=== PATIENT | female | born 1965 | race Caucasian/White ===

== ENCOUNTER 2017-02-28 20:01 | Emergency (ER) | payer MEDICAID, OTHER ==
[2017-02-28 20:16] VITALS: BP 152/79
--- NOTE | 2017-02-28 20:42 | UC ---
Jean Claude Benavides Natalie, scribed for Josue Lai MD on 02/28/17 at 2036 . Abdominal Pain Female HPI - HPI Summary HPI Summary: The pt is a 51 y/o F presenting to c/o LLQ abd pain starting two days ago. The pain is described as shooting. The pain is rated 4/10. The pain is aggravated by lying down and coughing. Pt additionally c/o coughing (two weeks) , right ear pain and burning with urination. Pt denies fever and back pain. She has Hx of emphysema. She has SHx of smoking. - History of Current Complaint Chief Complaint: UCGeneralIllness Stated Complaint: COUGH,VOMITING,ABD PAIN Time Seen by Provider: 02/28/17 20:24 Hx Obtained From: Patient Onset/Duration: Lasting Days - started two days ago, Still Present Severity Initially: Moderate Severity Currently: Moderate Pain Intensity: 4 Pain Scale Used: 0-10 Numeric Location: Discrete At: LLQ Radiates: No Character: Other - "shooting" Aggravating Factor(s): Other: - lying down, coughing Alleviating Factor(s): Nothing Associated Signs and Symptoms: Positive: Cough, Urinary Symptoms - burning with urination, Other: - right ear pain Allergies/Adverse Reactions: Allergies Allergy/AdvReac Type Severity Reaction Status Date / Time Clarithromycin [From Biaxin] Allergy Rash Verified 02/28/17 20:16 Codeine Allergy Swelling Verified 02/28/17 20:16 Home Medications: Home Medications Aspirin [Will Aspirin Regimen] 325 mg PO 02/28/17 [History] Yjvhzsk-Vuctfolekdkfk-Nbhfbjsa [Migraine Formula 250-250-65 mg] 1 tab PO [History] Insulin Lispro Protamine & Lis [Humalog Mix 75/25 Kwikpen (75-25) 100 Unit/ml] 02/28/17 [History] Lisinopril [Lisinopril 30 MG-] 30 mg PO DAILY 02/28/17 [History Confirmed ] Nateglinide(NF) [Starlix(NF)] 60 mg PO TID WITH MEALS 02/28/17 [History Confirmed 02/28/17] PMH/Surg Hx/FS Hx/Imm Hx - Surgical History Surgical History: Yes Surgery Procedure, Year, and Place: Hysterectomy. gall bladder 2014 - Family History Known Family History: Positive: None Family History: R & N/C - Social History Alcohol Use: None Substance Use Type: None Smoking Status (MU): Current Every Day Smoker Review of Systems ENT: Ear Ache Respiratory: Cough Gastrointestinal: Abdominal Pain Genitourinary: Dysuria All Other Systems Reviewed And Are Negative: Yes Physical Exam Triage Information Reviewed: Yes Appearance: Obese Vital Signs: Initial Vital Signs Temp 97.7 F 02/28/17 20:09 Pulse 97 02/28/17 20:09 Resp 22 02/28/17 20:09 BP 152/79 02/28/17 20:09 Pulse Ox 100 02/28/17 20:09 Vital Signs Reviewed: Yes Eyes: Positive: Conjunctiva Clear ENT: Positive: Pharyngeal erythema, TM red - right. Negative: Hoarse voice Neck: Positive: Supple Respiratory: Positive: Lungs clear, Normal breath sounds, No respiratory distress Cardiovascular: Positive: RRR, No Murmur Abdomen Description: Positive: Other: - tender in the Left Lower quadrant Musculoskeletal: Positive: ROM Intact Neurological: Positive: Alert Psychological: Positive: Normal Response To Family Skin Exam: Normal Abd Pain Female Course/Dx - Course Course Of Treatment: 51 yr old female who signed out AMA refusing to go for work up of her abdominal pain to the ER. Risks understood. - Differential Dx/Diagnosis Provider Diagnoses: abdominal pain. uri. hypertension Discharge - Discharge Plan Condition: Good Disposition: AGAINST MEDICAL ADVICE Referrals: Rachel Duenas NP [Primary Care Provider] - The documentation as recorded by the Jean Claude carey Natalie accurately reflects the service I personally performed and the decisions made by , Josue Lai MD.
== END 2017-02-28 20:37 | disposition left against medical advice (07) ==
LOC: UCEAST 20:01
DX: R10.9 Unspecified abdominal pain (principal); J06.9 Acute upper respiratory infection, unspecified; I10 Essential (primary) hypertension; F17.200 Nicotine dependence, unspecified, uncomplicated; Z88.1 Allergy status to other antibiotic agents; Z88.5 Allergy status to narcotic agent; Z79.82 Long term (current) use of aspirin; E11.9 Type 2 diabetes mellitus without complications; Z79.4 Long term (current) use of insulin
CPT/HCPCS: 99212; G0463

== ENCOUNTER 2017-03-29 23:24 | Inpatient (IN) | payer OTHER ==
[2017-03-30] MEDS ORDERED: Ondansetron INJ* 2 MG/ML VIAL IV ONE (01:20)
[2017-03-30] MEDS ORDERED: Morphine INJ* 4 MG/ML 1 ML CARPUJECT IV ONE (01:20)
[2017-03-30] MEDS: NS 0.9% 1000 ML* 2,000 ML IV ONE (01:33)
[2017-03-30 01:50] LABS: ABS Basophils 0.1 10^3/ul (0-0.2); ABS Eosinophils 0.4 10^3/ul (0-0.6); ABS Lymphocytes 2.7 10^3/ul (1.0-4.8); ABS Monocytes 0.6 10^3/ul (0-0.8); ABS Nucleated RBC 0 10^3/ul; Hematocrit 36 % (35-47); Hemoglobin 12.5 g/dl (12.0-16.0); Lymphocyte % 30.8 % (25-47); Mean Corpuscular HGB Conc 34 g/dl (31-36); Mean Corpuscular Hemoglobin 34 pg (27-31); Mean Corpuscular Volume 99 fL (80-97); Mean Platelet Volume 9 um3 (7.4-10.4); Nucleated Red Blood Cells % 0; Platelet Count 194 10^3/ul (150-450); Red Blood Count 3.69 10^6/ul (4.0-5.4); Red Cell Distribution Width 14 % (10.5-15); White Blood Count 8.8 10^3/ul (3.5-10.8)
[2017-03-30 01:54] LABS: INR 1.1 (0.77-1.02)
[2017-03-30 02:00] LABS: EGFR Non-African American 53.4 (>60)
[2017-03-30] MEDS ORDERED: Iodixanol* (CONTRAST) 320 MG/ML 100 ML SDV IV ONE (03:39)
[2017-03-30] MEDS ORDERED: Magnesium Sulfate 2 GM IV* 2 GM/50 ML BAG IVPB ONE (03:58)
--- NOTE | 2017-03-30 07:12 | ED ---
Cesar Benavides Thomas, scribed for Hollis Molina MD on 03/30/17 at 0105 . HPI Chest Pain - HPI Summary HPI Summary: The patient is a 51 year old female presenting to the emergency department complaining of chest pain and lower abdominal pain that has been present for three days. The pain is rated 8/10 and is described as pressure. The patient additionally complains of chills, diarrhea (chronic), bloody-appearing urine, and a productive cough. The patient denies bloody stools. Past medical history includes HTN, HLD, and DM. Past surgical history includes hysterectomy and cholecystectomy. - History of Current Complaint Chief Complaint: EDChestPainROMI Time Seen by Provider: 03/30/17 00:57 Hx Obtained From: Patient Onset/Duration: Started Days Ago - 3, Still Present Timing: Constant Current Severity: Moderate Pain Intensity: 8 Pain Scale Used: 0-10 Numeric Chest Pain Radiates: Yes Chest Pain Radiates To:: Back Character: Pressure/Squeezing Alleviating Factor(s): Nothing Associated Signs and Symptoms: Positive: Other: - CP, lower abd pain, chills, diarrhea, bloody-appearning urine, cough; NEGATIVE: bloody stools Related History: Obesity - Allergy/Home Medications Allergies/Adverse Reactions: Allergies Allergy/AdvReac Type Severity Reaction Status Date / Time MS Clarithromycin Allergy Rash Verified 03/29/17 23:36 [From Biaxin] MS Codeine [Codeine] Allergy Swelling Verified 03/29/17 23:36 PMH/Surg Hx/FS Hx/Imm Hx Endocrine/Hematology History: Reports: Hx Diabetes Denies: Hx Thyroid Disease Cardiovascular History: Reports: Hx Hypertension Respiratory History: Reports: Hx Chronic Obstructive Pulmonary Disease (COPD) Denies: Hx Asthma GI History: Denies: Hx Ulcer - Surgical History Surgery Procedure, Year, and Place: Hysterectomy. gall bladder 2015 Infectious Disease History: No Infectious Disease History: Denies: Hx Clostridium Difficile, Hx Hepatitis, Hx Human Immunodeficiency Virus (HIV), Hx of Known/Suspected MRSA, Hx Shingles, Hx Tuberculosis, Hx Known/ Suspected VRE, Hx Known/Suspected VRSA, History Other Infectious Disease, Traveled Outside the [place] in Last 30 Days - Family History Known Family History: Positive: Diabetes - Social History Alcohol Use: None Hx Substance Use: No Substance Use Type: Reports: None Hx Tobacco Use: Yes Smoking Status (MU): Current Every Day Smoker Review of Systems Positive: Chills. Negative: Fever Positive: Chest Pain Positive: Cough Positive: Diarrhea - chronic. Negative: Other - bloody stools Positive: other - bloody-appearing urine All Other Systems Reviewed And Are Negative: Yes Physical Exam - Summary Physical Exam Summary: General: well-appearing, mild pain distress Skin: warm, color reflects adequate perfusion, dry Head: normal Eyes: EOMI, SHAYNE ENT: normal Neck: supple, nontender Respiratory: CTA, breath sounds present Cardiovascular: RRR Chest: Tender to palpation at the sternum. Abdomen: Soft. There is mild tenderness to palpation at the lower abdomen. Bowel: present Musculoskeletal: normal, strength/ROM intact Neurological: normal, sensory/motor intact, A&O x3 Psychological: affect/mood appropriate Triage Information Reviewed: Yes Vital Signs On Initial Exam: Initial Vitals Temp Pulse Resp BP Pulse Ox 97.5 F 94 18 160/81 100 03/29/17 23:34 03/29/17 23:34 03/29/17 23:34 03/29/17 23:34 03/29/17 23:34 Vital Signs Reviewed: Yes Diagnostics - Vital Signs Vital Signs Temp Pulse Resp BP Pulse Ox 03/29/17 23:34 97.5 F 94 18 160/81 100 - Laboratory Lab Results: Lab Results 03/30/17 03/30/17 03/30/17 Range/Units 01:20 01:20 01:20 WBC (3.5-10.8) 10^3/ul RBC (4.0-5.4) 10^6/ul Hgb (12.0-16.0) g/dl Hct (35-47) % MCV (80-97) fL MCH (27-31) pg MCHC (31-36) g/dl RDW (10.5-15) % Plt Count (150-450) 10^3/ul MPV (7.4-10.4) um3 Neut % (Auto) (38-83) % Lymph % (Auto) (25-47) % [place] % (Auto) (1-9) % Eos % (Auto) (0-6) % Baso % (Auto) (0-2) % Absolute Neuts (auto) (1.5-7.7) 10^3/ul Absolute Lymphs (auto) (1.0-4.8) 10^3/ul Absolute Monos (auto) (0-0.8) 10^3/ul Absolute Eos (auto) (0-0.6) 10^3/ul Absolute Basos (auto) (0-0.2) 10^3/ul Absolute Nucleated RBC 10^3/ul Nucleated RBC % INR (Anticoag Therapy) 1.10 H (0.77-1.02) APTT 28.9 (26.0-36.3) seconds Sodium 134 (133-145) mmol/L Potassium 4.1 (3.5-5.0) mmol/L Chloride 101 (101-111) mmol/L Carbon Dioxide 26 (22-32) mmol/L Anion Gap 7 (2-11) mmol/L BUN 17 (6-24) mg/dL Creatinine 1.09 H (0.51-0.95) mg/dL Est GFR ( Amer) 68.6 (>60) Est GFR (Non-Af Amer) 53.4 (>60) BUN/Creatinine Ratio 15.6 (8-20) Glucose 175 H (70-100) mg/dL Lactic Acid (0.5-2.0) mmol/L Calcium 9.4 (8.6-10.3) mg/dL Magnesium 1.6 L (1.9-2.7) mg/dL Total Bilirubin 0.30 (0.2-1.0) mg/dL AST 14 (13-39) U/L ALT 9 (7-52) U/L Alkaline Phosphatase 76 (34-104) U/L Troponin I 0.01 (<0.04) ng/mL C-Reactive Protein 4.60 (< 5.00) mg/L B-Natriuretic Peptide 47 ( - 100) pg/mL Total Protein 7.0 (6.4-8.9) g/dL Albumin 3.1 L (3.2-5.2) g/dL Globulin 3.9 (2-4) g/dL Albumin/Globulin Ratio 0.8 L (1-3) Lipase 471 H (11.0-82.0) U/L TSH 2.27 (0.34-5.60) mcIU/mL 03/30/17 03/30/17 03/30/17 Range/Units 01:20 01:20 04:20 WBC 8.8 (3.5-10.8) 10^3/ul RBC 3.69 L (4.0-5.4) 10^6/ul Hgb 12.5 (12.0-16.0) g/dl Hct 36 (35-47) % MCV 99 H (80-97) fL MCH 34 H (27-31) pg MCHC 34 (31-36) g/dl RDW 14 (10.5-15) % Plt Count 194 (150-450) 10^3/ul MPV 9 (7.4-10.4) um3 Neut % (Auto) 56.2 (38-83) % Lymph % (Auto) 30.8 (25-47) % [place] % (Auto) 7.3 (1-9) % Eos % (Auto) 5.0 (0-6) % Baso % (Auto) 0.7 (0-2) % Absolute Neuts (auto) 5.0 (1.5-7.7) 10^3/ul Absolute Lymphs (auto) 2.7 (1.0-4.8) 10^3/ul Absolute Monos (auto) 0.6 (0-0.8) 10^3/ul Absolute Eos (auto) 0.4 (0-0.6) 10^3/ul Absolute Basos (auto) 0.1 (0-0.2) 10^3/ul Absolute Nucleated RBC 0 10^3/ul Nucleated RBC % 0 INR (Anticoag Therapy) (0.77-1.02) APTT (26.0-36.3) seconds Sodium (133-145) mmol/L Potassium (3.5-5.0) mmol/L Chloride (101-111) mmol/L Carbon Dioxide (22-32) mmol/L Anion Gap (2-11) mmol/L BUN (6-24) mg/dL Creatinine (0.51-0.95) mg/dL Est GFR ( Amer) (>60) Est GFR (Non-Af Amer) (>60) BUN/Creatinine Ratio (8-20) Glucose (70-100) mg/dL Lactic Acid 1.0 (0.5-2.0) mmol/L Calcium (8.6-10.3) mg/dL Magnesium (1.9-2.7) mg/dL Total Bilirubin (0.2-1.0) mg/dL AST (13-39) U/L ALT (7-52) U/L Alkaline Phosphatase (34-104) U/L Troponin I 0.02 (<0.04) ng/mL C-Reactive Protein (< 5.00) mg/L B-Natriuretic Peptide ( - 100) pg/mL Total Protein (6.4-8.9) g/dL Albumin (3.2-5.2) g/dL Globulin (2-4) g/dL Albumin/Globulin Ratio (1-3) Lipase (11.0-82.0) U/L TSH (0.34-5.60) mcIU/mL Result Diagrams: 03/30/17 01:20 03/30/17 01:20 Lab Statement: Any lab studies that have been ordered have been reviewed, and results considered in the medical decision making process. - CT CTA Abd/Pel CT Interpretation: No Acute Changes - Contrast mixing artifact more likely than Pes left main artery and branches to left upper lobe. No aortic dissection or aneurysm. Prominence interstitial markings and faint ground glass densities bilateral lungs, nonspecific. No focal lung consolidation or pleural effusions. Coronary artery disease. Fat haziness surrounding pancreatic tail, correlate clinically for acute pancreatitis. No bowel obstruction, colitis or free air. Normal appendix. Cortical scarring bilateral kidneys with small calceal diverticulum on right and calcifications/nonobstructing stones on the left. Cirrhotic liver contour. Hepatomegaly. Cholecystectomy. Hysterectomy. Negligible ascites lower pelvis. Bilateral L5 spondylosis. Dr. Molina has reviewed this report. CT Interpretation Completed By: Radiologist - EKG 23:29 Cardiac Rate: NL EKG Rhythm: Sinus Rhythm - at [address] Segment: Normal Ectopy: None Chest Pain Course/Dx - Course Course Of Treatment: Medications reviewed. BP noted and patient urged primary care follow-up. Allergies noted. ADMIT HOSPITALIST. CRITICAL CARE TIME LESS THAN 30 MINUTES - Diagnoses Provider Diagnoses: Uncontrolled hypertension, Pancreatitis Discharge - Discharge Plan Condition: Stable Disposition: ADMITTED TO [facility] documentation as recorded by the Cesar carey Thomas accurately reflects the service I personally performed and the decisions made by , Hollis Molina MD.
[2017-03-30] MEDS ORDERED: Dextrose 50% Syringe 50 ML* 25 GM/50 ML SYRINGE IV PUSH PRN (07:25)
--- NOTE | 2017-03-30 08:22 | RAD ---
INDICATION: Chest and abdominal pain COMPARISON: Chest x-ray April 11, 2015 TECHNIQUE: Axial source images were obtained from the thoracic inlet to the symphysis pubis following administration of oral and intravenous contrast. 100 mL Visipaque [address] angiographic technique was utilized. Coronal and sagittal reconstructed images were acquired. CHEST FINDINGS: Neck/thyroid: The visualized neck to include the thyroid appear normal. Chest wall: There are no acute abnormalities of the bony thorax or chest wall. There is no supraclavicular, infraclavicular, or axillary lymphadenopathy. Lungs : There are no pulmonary parenchymal masses or infiltrates. The pulmonary interstitium appears normal. There are no endobronchial lesions. Cardiomediastinal structures: The heart is normal in size. There is no pericardial effusion. There is no evidence of aortic aneurysm or dissection. The pulmonary vessels appear normal. There is no CT evidence of acute pulmonary emboli. There is no mediastinal or hilar adenopathy. The esophagus appears normal. Pleura : There are no pleural-based masses or effusions. ABDOMINAL/PELVIC FINDINGS: Liver: The liver is normal in size. There is a lobular contour suggestive of cirrhosis There are no masses. There is no ductal dilatation. Gallbladder: Cholecystectomy. Spleen: The spleen is normal in size. There are no masses. Pancreas: The tail the pancreas appears mildly prominent and there is peripancreatic stranding suggestive of pancreatitis. Suggest correlation with serum lipase. Adrenal glands: There is no evidence of adrenal mass. Kidneys: There is scarring of each kidney. This is most significant on the left. There is also evidence of nodular left-sided nephrolithiasis. There is right-sided calyceal diverticulum. Adenopathy: There is no evidence of adenopathy by size criteria. Fluid collections: There are no significant free or localized fluid collections. Vessels:The aorta and IVC appear normal GI tract: There are no acute CT bowel findings. There is no obstruction. The stomach and small bowel appear normal. The lower GI tract is normal. The cecum, ileocecal valve, and terminal ileum appear normal. The appendix is visualized and appear normal. Pelvic organs: There is hysterectomy. There is no adnexal mass Bladder: There are no bladder masses. Abdominal and pelvic soft tissues: The extraperitoneal abdominal and pelvic soft tissues appear normal.. Osseous structures: There are no acute osseous findings. There is chronic, bilateral, L5 spondylolysis. IMPRESSION: 1. No CT evidence of acute pulmonary embolic disease. 2. Cirrhotic liver morphology. 3. Possible pancreatitis. 4. Renal scarring with nonobstructive left-sided nephrolithiasis. 5. Chronic L5 spondylolysis. 6. Cholecystectomy. Hysterectomy.
[2017-03-30] MEDS: Insulin LISPRO* 1 UNITS UNIT SUBCUT SCH ×4 (08:24→22:17)
[2017-03-30] MEDS: D5W 1/2 NS KCl 20 Meq 1000 ML* 1,000 ML IV SCH ×2 (08:33→16:53)
[2017-03-30] MEDS ORDERED: Ondansetron INJ* 2 MG/ML VIAL IV PRN (12:06)
[2017-03-30] MEDS ORDERED: HYDROmorphone INJ* 1 MG/ML CARPUJECT SYRINGE IV SLOW PU PRN (12:07)
[2017-03-30] MEDS ORDERED: Lisinopril TAB* 10 MG PO SCH (13:00)
[2017-03-30] MEDS: PTO: Pantoprazole TAB (NF) 20 MG TAB PO SCH (13:13)
[2017-03-30] MEDS: amLODIPine TAB* 5 MG PO SCH (16:53)
[2017-03-30] MEDS: Benzonatate CAP* 100 MG PO PRN (16:53)
--- NOTE | 2017-03-30 20:15 | HP ---
ADMISSION HISTORY AND PHYSICAL: DATE OF ADMISSION: 03/30/17 PRIMARY CARE PROVIDER: Rachel Duenas NP ATTENDING FOR THIS CASE: Caio De La Cruz MD * (DICTATED BY GREGORIA PAINTING NP) CHIEF COMPLAINT: Right upper quadrant and abdominal pain. HISTORY OF PRESENT ILLNESS: This is a 51-year-old female patient who appears older than her stated age that came to the emergency department complaining of chest pain, abdominal pain, and right upper quadrant pain for three days. The patient states the pain was 8/10 described as pressure. The patient states that she also had some chills and some diarrhea, perhaps some darkness in the color of her urine and productive cough. The patient's past medical history is significant for hypertension, pancreatitis, hyperlipidemia, diabetes mellitus, and alcohol abuse in the past. The patient had a CAT scan of the chest, abdomen , and pelvis which shows a flare of her pancreatitis, also her lipase was elevated. She has been referred for inpatient admission for [id number] pancreatitis and abdominal pain. PAST MEDICAL HISTORY: As stated above. PAST SURGICAL HISTORY: 1. Hysterectomy. 2. Cholecystectomy. MEDICATIONS AT HOME: Include; 1. Low-dose baby aspirin 81 mg daily. 2. 70/30 insulin b.i.d. 3. Lisinopril 30 mg daily. 4. Pantoprazole 20 mg two times a day. 5. Starlix 60 mg three times a day. ALLERGIES: 1. MACROLIDE antibiotics. 2. CLARITHROMYCIN. 3. CODEINE. 4. 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 Reports no substance abuse. She is a daily tobacco user since age 11. She smokes about a half a pack a day now; however, up until a couple of years ago she was smoking over a pack a day. Also of significant note, the patient reported that she just had a breast biopsy completed a week ago and has been escalated to breast MRI for some abdominal findings on her breast biopsy. REVIEW OF SYSTEMS: The patient is complaining of some chills, but no fever. Right upper quadrant pain, transient nausea, no vomiting, lower abdominal pain as well diffuse in nature as she described it. No nausea or vomiting. No diarrhea. No arthralgias or myalgias and no further constitutional complaints. PHYSICAL EXAMINATION GENERAL: The patient is alert. Again, appears older than her stated age and some mild distress. VITAL SIGNS: Currently, blood pressure 160/85, temperature 97.8, heart rate 86 , O2 saturation is 97% on room air, respiratory rate 20. HEENT: The patient is atraumatic, normocephalic. She has PERRLA. Nonicteric sclerae. She does have certain amount of edema around the upper and lower lids of the eyes. Not sure if this is her baseline or not. NECK: Supple. Nontender. No JVD noted. No carotid bruit auscultated. No thyromegaly or nodules noted. LUNGS: Greatly diminished with some scattered rhonchi and mild expiratory wheeze. CARDIOVASCULAR: S1, S2 present. Rate and rhythm are regular. No murmurs, gallops, or rubs are appreciated. ABDOMEN: Soft. Moderately to severely tender in the right upper quadrant. She does have some point tenderness, but no guarding. She has positive bowel sounds in all four quadrants. No hepatosplenomegaly appreciated. : Deferred. MUSCULOSKELETAL: There is no clubbing. No edema. No cyanosis noted. She has +2 distal pulses palpable. She has gross motor and sensation intact and she is ambulatory. NEUROLOGIC: She is grossly intact with no focal deficits. PSYCHIATRIC: She is cooperative and very appropriate. LABORATORY DATA: WBC is 8.8, RBC is 3.69, hemoglobin 12.5, hematocrit 36, MCV 99, MCH 34, and platelets 194. Sodium 134, potassium 4.1, chloride 101, CO2 26 , BUN 17, creatinine 1.09, GFR 53.4, glucose 175, lactic acid 1.0, magnesium 1.6 , bilirubin 0.3, AST 14, ALT 9, alkaline phos 76. Troponins are 0.01, 0.02, and 0.01. CRP is 4.6, protein 7.0, albumin 3.1, globulin 3.9. Triglycerides 129, cholesterol 201, LDL 137, HDL 38.1, lipase 487, and TSH 2.27. IMPRESSION: This is a 51-year-old female patient with what appears to now be an esxyq-ni-zqlexil pancreatitis being admitted for fluid management, pain control, and likely some further management of her high blood pressure and some electrolyte disturbances. DIAGNOSES: 1. Evgzq-vo-mrpruxj pancreatitis. She has already been given 2 L of fluid. CAT scan of the chest, abdomen, and pelvis shows no pulmonary embolus given her chest pain. Troponins were negative, I did not feel that this chest pain was actually cardiac chest pain, however, radiating pain secondary to pancreatitis. Again, she has been given fluids. She was placed on clear diet, which she seems to be tolerating. We will give her 1 mg of Dilaudid every 6 hours as needed for pain. Continue IV fluids. Continue hydration. At this point, monitor her lipase and continue conservative management. 2. Acute kidney injury. Again, she has received fluids. She will continue to receive more. I do not if she has underlying kidney disease given her diabetes , this maybe an issue. We will monitor her renal function, creatinine, and BUN and again continue with fluids. 3. For her hyperlipidemia, she is not on statin. This will be recommended. We will start her on one and have continue it at discharge. 4. For her diabetes mellitus, we will put her on lispro sliding scale. She is only on clear liquid, so long acting insulin would inappropriate at this time. Sugars have been relatively stable in the 140s to 170 range. 5. For her hypertension, I am going to change her lisinopril given her kidney function today and change her to Norvasc and monitor for response. 6. For her hypomagnesemia, she has already received 2 g of mag in the ER. We will recheck her mag level. 7. For her gastroesophageal reflux disease, continue her PPI which is her pantoprazole 20 mg twice daily. PLAN: I think at this point continue conservative management for the pancreatitis would be warranted. If she should have further pain or increase in leukocytosis or fevers, we may escalate to an MRCP. However, the patient does not seem to be heading in that direction. We will monitor her status closely within the next 24 hours. The patient states she does not want her children to know about her illness right now nor that she want them to know about the results of her breast biopsy. This has been discussed with her at length and it is also in the computer and she had stated to the staff that she wished to be a DNR. As the patient is not feeling well today given her young age, I recommend having another conversation with her about her DNR status considering all that is going on right now. I think that is another conversation that should be had with her before this hospitalization is over. This plan has been discussed with Dr. Caio De La Cruz who is in agreement with the plan. The rest of her course will be determined by further diagnostics, laboratories and any other input from other providers as warranted during this admission. TIME SPENT: I personally spent an excessive 60 minutes on this admission face- to- face with the patient and interacting with the staff involved in her care. GREGORIA PAINTING, DAMIÁN [id number]/CPS #: [id number] [facility]esh
[2017-03-31] MEDS: Omeprazole CAP* 20 MG PO SCH ×2 (00:13→20:42)
[2017-03-31] MEDS: PTO: Pantoprazole TAB (NF) 20 MG TAB PO SCH (00:23)
[2017-03-31] MEDS: D5W 1/2 NS KCl 20 Meq 1000 ML* 1,000 ML IV SCH (02:17)
[2017-03-31 08:17] LABS: ABS Basophils 0 10^3/ul (0-0.2); ABS Eosinophils 0.4 10^3/ul (0-0.6); ABS Lymphocytes 2.3 10^3/ul (1.0-4.8); ABS Monocytes 0.5 10^3/ul (0-0.8); ABS Neutrophils 3.9 10^3/ul (1.5-7.7); ABS Nucleated RBC 0 10^3/ul; Eosinophil % 5.4 % (0-6); Hematocrit 36 % (35-47); Hemoglobin 12.5 g/dl (12.0-16.0); Lymphocyte % 32.2 % (25-47); Mean Corpuscular HGB Conc 34 g/dl (31-36); Mean Corpuscular Hemoglobin 34 pg (27-31); Mean Corpuscular Volume 100 fL (80-97); Mean Platelet Volume 9 um3 (7.4-10.4); Nucleated Red Blood Cells % 0; Platelet Count 181 10^3/ul (150-450); Red Blood Count 3.66 10^6/ul (4.0-5.4); Red Cell Distribution Width 13 % (10.5-15); White Blood Count 7.2 10^3/ul (3.5-10.8)
[2017-03-31 08:22] LABS: EGFR Non-African American 59.6 (>60)
[2017-03-31] MEDS: amLODIPine TAB* 5 MG PO SCH (09:38)
[2017-03-31] MEDS: Aspirin EC Low Dose* 81 MG TAB.EC PO SCH (09:38)
[2017-03-31] MEDS: Insulin LISPRO* 1 UNITS UNIT SUBCUT SCH ×4 (09:39→20:51)
[2017-03-31] MEDS ORDERED: guaiFENesin LIQ* 100 MG/5 ML UDC PO PRN (15:06)
--- NOTE | 2017-03-31 16:08 | PN ---
Subjective Date of Service: 03/31/17 Interval History: Still having abdominal pain, but is manageable with a heating pad. She ate lunch with minimal nausea. No fevers, shortness of breath, some cough. Family History: Unchanged from Admission Social History: Unchanged from Admission Past Medical History: Unchanged from Admission Objective Active Medications: Amlodipine Besylate (Norvasc Tab*) 5 mg PO DAILY [facility] Last Admin: 03/31/17 09:38 Dose: 5 mg Aspirin (Aspirin Ec Low Dose*) 81 mg PO DAILY [facility] Last Admin: 03/31/17 09:38 Dose: 81 mg Benzonatate (Tessalon Cap*) 100 mg PO TID PRN PRN Reason: COUGH Last Admin: 03/30/17 16:53 Dose: 100 mg Dextrose (D50w Syringe 50 Ml*) 12.5 gm IV PUSH .FOR FS < 60 - SS PRN PRN Reason: FS < 60 Guaifenesin (Robitussin*) 5 ml PO Q6H PRN PRN Reason: COUGH Hydromorphone HCl (Dilaudid Injic*) 1 mg IV SLOW PU Q6H PRN PRN Reason: PAIN Potassium Chloride/Dextrose (D5w 1/2 Ns Kcl 20 Meq 1000 Ml*) 1,000 mls @ 125 mls/hr IV PER RATE [facility] Last Admin: 03/31/17 02:17 Dose: 125 mls/hr Insulin Human Lispro (Humalog*) 0 units SUBCUT ACHS [facility] PRN Reason: Protocol Last Admin: 03/31/17 12:06 Dose: 3 units Omeprazole (Prilosec Cap*) 20 mg PO BEDTIME [facility] Last Admin: 03/31/17 00:13 Dose: 20 mg Ondansetron HCl (Zofran Inj*) 4 mg IV Q6H PRN PRN Reason: NAUSEA Vital Signs - 8 hr 03/31/17 15:14 Temperature 98.6 F Pulse Rate 84 Respiratory 18 Rate Blood Pressure 141/71 (mmHg) O2 Sat by Pulse 97 Oximetry Oxygen Devices in Use Now: None Appearance: uncomfortable, in no distress Eyes: No Scleral Icterus Ears/Nose/Mouth/Throat: - - edentulous Neck: NL Appearance and Movements; NL JVP Respiratory: Symmetrical Chest Expansion and Respiratory Effort Cardiovascular: NL Sounds; No Murmurs; No JVD, RRR Abdominal: NL Sounds; No Tenderness; No Distention, - - tender to deep palpation midline, no guarding or rebound, liver palpable at costal margin Lymphatic: No Cervical Adenopathy Extremities: No Edema Skin: No Rash or Ulcers Neurological: Alert and Oriented x 3 Result Diagrams: 03/31/17 07:42 03/31/17 07:42 Additional Lab and Data: Lab Results 03/30/17 03/30/17 03/30/17 Range/Units 01:20 01:20 01:20 WBC (3.5-10.8) 10^3/ul RBC (4.0-5.4) 10^6/ul Hgb (12.0-16.0) g/dl Hct (35-47) % MCV (80-97) fL MCH (27-31) pg MCHC (31-36) g/dl RDW (10.5-15) % Plt Count (150-450) 10^3/ul MPV (7.4-10.4) um3 Neut % (Auto) (38-83) % Lymph % (Auto) (25-47) % Rusk % (Auto) (1-9) % Eos % (Auto) (0-6) % Baso % (Auto) (0-2) % Absolute Neuts (auto) (1.5-7.7) 10^3/ul Absolute Lymphs (auto) (1.0-4.8) 10^3/ul Absolute Monos (auto) (0-0.8) 10^3/ul Absolute Eos (auto) (0-0.6) 10^3/ul Absolute Basos (auto) (0-0.2) 10^3/ul Absolute Nucleated RBC 10^3/ul Nucleated RBC % INR (Anticoag Therapy) 1.10 H (0.77-1.02) APTT 28.9 (26.0-36.3) seconds Sodium 134 (133-145) mmol/L Potassium 4.1 (3.5-5.0) mmol/L Chloride 101 (101-111) mmol/L Carbon Dioxide 26 (22-32) mmol/L Anion Gap 7 (2-11) mmol/L BUN 17 (6-24) mg/dL Creatinine 1.09 H (0.51-0.95) mg/dL Est GFR ( Amer) 68.6 (>60) Est GFR (Non-Af Amer) 53.4 (>60) BUN/Creatinine Ratio 15.6 (8-20) Glucose 175 H (70-100) mg/dL Lactic Acid (0.5-2.0) mmol/L Calcium 9.4 (8.6-10.3) mg/dL Magnesium 1.6 L (1.9-2.7) mg/dL Total Bilirubin 0.30 (0.2-1.0) mg/dL AST 14 (13-39) U/L ALT 9 (7-52) U/L Alkaline Phosphatase 76 (34-104) U/L Troponin I 0.01 (<0.04) ng/mL C-Reactive Protein 4.60 (< 5.00) mg/L B-Natriuretic Peptide 47 ( - 100) pg/mL Total Protein 7.0 (6.4-8.9) g/dL Albumin 3.1 L (3.2-5.2) g/dL Globulin 3.9 (2-4) g/dL Albumin/Globulin Ratio 0.8 L (1-3) Lipase 471 H (11.0-82.0) U/L TSH 2.27 (0.34-5.60) mcIU/mL 03/30/17 03/30/17 03/30/17 Range/Units 01:20 01:20 04:20 WBC 8.8 (3.5-10.8) 10^3/ul RBC 3.69 L (4.0-5.4) 10^6/ul Hgb 12.5 (12.0-16.0) g/dl Hct 36 (35-47) % MCV 99 H (80-97) fL MCH 34 H (27-31) pg MCHC 34 (31-36) g/dl RDW 14 (10.5-15) % Plt Count 194 (150-450) 10^3/ul MPV 9 (7.4-10.4) um3 Neut % (Auto) 56.2 (38-83) % Lymph % (Auto) 30.8 (25-47) % Rusk % (Auto) 7.3 (1-9) % Eos % (Auto) 5.0 (0-6) % Baso % (Auto) 0.7 (0-2) % Absolute Neuts (auto) 5.0 (1.5-7.7) 10^3/ul Absolute Lymphs (auto) 2.7 (1.0-4.8) 10^3/ul Absolute Monos (auto) 0.6 (0-0.8) 10^3/ul Absolute Eos (auto) 0.4 (0-0.6) 10^3/ul Absolute Basos (auto) 0.1 (0-0.2) 10^3/ul Absolute Nucleated RBC 0 10^3/ul Nucleated RBC % 0 INR (Anticoag Therapy) (0.77-1.02) APTT (26.0-36.3) seconds Sodium (133-145) mmol/L Potassium (3.5-5.0) mmol/L Chloride (101-111) mmol/L Carbon Dioxide (22-32) mmol/L Anion Gap (2-11) mmol/L BUN (6-24) mg/dL Creatinine (0.51-0.95) mg/dL Est GFR ( Amer) (>60) Est GFR (Non-Af Amer) (>60) BUN/Creatinine Ratio (8-20) Glucose (70-100) mg/dL Lactic Acid 1.0 (0.5-2.0) mmol/L Calcium (8.6-10.3) mg/dL Magnesium (1.9-2.7) mg/dL Total Bilirubin (0.2-1.0) mg/dL AST (13-39) U/L ALT (7-52) U/L Alkaline Phosphatase (34-104) U/L Troponin I 0.02 (<0.04) ng/mL C-Reactive Protein (< 5.00) mg/L B-Natriuretic Peptide ( - 100) pg/mL Total Protein (6.4-8.9) g/dL Albumin (3.2-5.2) g/dL Globulin (2-4) g/dL Albumin/Globulin Ratio (1-3) Lipase (11.0-82.0) U/L TSH (0.34-5.60) mcIU/mL Assess/Plan/Problems-Billing Assessment: 51 yo female with history of alcohol abuse (from age [age]) admitted with abdominal pain and found to have pancreatitis - Patient Problems (1) Pancreatitis Current Visit: Yes Status: Acute Code(s): K85.90 - ACUTE PANCREATITIS WITHOUT NECROSIS OR INFECTION, UNSP SNOMED Code(s): 40697199 Comment: etoh history is remote (quit when she was 18) but still may be a result of that history she was also on lisinopril, which can precipitate pancreatitis, but more unlikely continue pain control advance diet as tolerated home tomorrow (2) Cirrhosis Current Visit: Yes Status: Acute Comment: this is a new diagnosis for her i recommended follow up with her pcp and yearly ultrasounds (3) History of alcohol abuse Current Visit: Yes Status: Acute Code(s): Z87.898 - PERSONAL HISTORY OF OTHER SPECIFIED CONDITIONS SNOMED Code(s): 045019203 Comment: abstinent since age 18 (4) HTN (hypertension) Current Visit: Yes Status: Acute Code(s): I10 - ESSENTIAL (PRIMARY) HYPERTENSION SNOMED Code(s): 50669815 Comment: amlodipine started yesterday; takes about a week to get to steady state. bp acceptable.
[2017-03-31] MEDS: Benzonatate CAP* 100 MG PO PRN (20:42)
[2017-04-01] MEDS: Insulin LISPRO* 1 UNITS UNIT SUBCUT SCH (07:34)
[2017-04-01 08:03] VITALS: BP 155/88
[2017-04-01] MEDS: amLODIPine TAB* 5 MG PO SCH (08:06)
[2017-04-01] MEDS: Aspirin EC Low Dose* 81 MG TAB.EC PO SCH (08:06)
--- NOTE | 2017-04-02 06:15 | DS ---
DISCHARGE SUMMARY: DATE OF ADMISSION: 03/30/17 DATE OF DISCHARGE: 04/01/17 PRIMARY CARE PROVIDER: Rachel Duenas NP. CHIEF COMPLAINT: Right upper quadrant abdominal pain and chest pressure. PRINCIPAL DIAGNOSIS: Acute pancreatitis. HISTORY OF PRESENT ILLNESS AND HOSPITAL COURSE: Sanjana Mittal is a 51-year-old female with a past medical history significant for alcohol use in her teens, but has since stopped; hypertension, episodes of pancreatitis, hyperlipidemia, diabetes mellitus, insulin dependent. She also has a history of myocardial infarction in 2004 and she was recommended followup with a marketing instructor. She presented to the emergency room complaining of 8/10 chest pressure, right upper quadrant abdominal pain x3 days, chills, some diarrhea, darker urine, and a productive cough. She had a CT of her chest, abdomen, and pelvis, which showed evidence of acute pancreatitis and the lipase was 471. She got IV fluids. Her diet was slowly advanced and by the day prior to discharge she was tolerating a full diet, with no abdominal pain. Her chest pressure had resolved. Her lisinopril, which can rarely cause pancreatitis, was stopped. She was started on amlodipine. Her imaging showed evidence of cirrhosis and she was recommended to follow up with her PCP and GI physician. She had no evidence of transaminitis. Her INR was slightly elevated at 1.10. She is scheduled to get a breast MRI on April 03, for known right breast lesion that has already been biopsied apparently. Additional CT, chest, abdomen , and pelvis findings include, as mentioned, cirrhotic liver morphology, renal scarring, with nonobstructive left-sided nephrolithiasis, chronic L5 spondylosis. No evidence of pulmonary embolism. She had negative troponin of 0.01, 0.02, 0.01. Her EKG demonstrated normal sinus rhythm with no ST changes or elevations. DISCHARGE MEDICATIONS: Include: 1. Amlodipine 5 mg daily (new). 2. Nateglinide 60 mg p.o. t.i.d. (Starlix). 3. Protonix 20 mg p.o. b.i.d. 4. Aspirin 81 mg daily. Of note, her lisinopril 30 mg daily was stopped. She had negative troponins. DISCHARGE DIET: Heart healthy. Abstinence from alcohol continue to be recommended. ACTIVITY LEVEL: No restrictions. FOLLOWUP: Please follow up with her primary care provider within 5 days and marketing instructor referral given to Dr. Hammond within 2 weeks for consideration for outpatient nuclear stress testing. TIME SPENT: Time spent on this discharge was 35 minutes. [id number]/[facility] #: [id number] ELLEN
== END 2017-04-01 10:20 | disposition home or self-care (01) | DRG 282 ==
LOC: ED 23:24 → MEDTELE 03-30 06:40 → MED 03-30 19:50 → OBSVTOIN 03-31 09:30
PROVIDERS: ADMIT Pediatrics; ATTEND Internal Medicine
DX: K85.90 Acute pancreatitis without necrosis or infection, unspecified (principal); E83.42 Hypomagnesemia; K74.60 Unspecified cirrhosis of liver; I10 Essential (primary) hypertension; E78.5 Hyperlipidemia, unspecified; E11.9 Type 2 diabetes mellitus without complications; J44.9 Chronic obstructive pulmonary disease, unspecified; F17.210 Nicotine dependence, cigarettes, uncomplicated; F10.11 Alcohol abuse, in remission; Y90.9 Presence of alcohol in blood, level not specified; K21.9 Gastro-esophageal reflux disease without esophagitis; N64.89 Other specified disorders of breast; N20.0 Calculus of kidney; M47.896 Other spondylosis, lumbar region; K52.9 Noninfective gastroenteritis and colitis, unspecified; K86.1 Other chronic pancreatitis; Z90.710 Acquired absence of both cervix and uterus; Z90.49 Acquired absence of other specified parts of digestive tract; Z88.6 Allergy status to analgesic agent; Z88.1 Allergy status to other antibiotic agents; Z83.3 Family history of diabetes mellitus; Z88.8 Allergy status to other drugs, medicaments and biological substances; Z79.82 Long term (current) use of aspirin; I25.2 Old myocardial infarction; Z79.84 Long term (current) use of oral hypoglycemic drugs
CPT/HCPCS: 36415; 71275; 74177; 80053; 80061; 80320; 83605; 83690; 83735; 83880; 84443; 84484; 85025; 85610; 85730; 86140; 93005; 99284; 99406; A9270-GY; G0378; G0480; J2270; J2405; J3475; Q9967